=== PATIENT | female | born 1960 | race Caucasian/White ===

== ENCOUNTER 2021-07-03 15:53 | Inpatient (IN) | payer MEDICARE ==
[~2021-07-03] VITALS: Ht 165.1 cm; Wt 148.9 kg
[2021-07-03 16:43] LABS: BASOPHIL 0.7 % (0-2); EOSINOPHIL 3.5 % (0-5); HCT 46.8 % (37.0-47.0); HGB 15.1 g/dl (12.5-16.0); LYMPHOCYTE 15.2 % (15-48); MCH 30.4 pg (25.0-31.0); MCHC 32.3 g/dL (32.0-36.0); MCV 94.4 fL (78.0-100.0); MONOCYTE 12.9 % (0-12); MPV 11.5 fL (6.0-9.5); NEUTROPHIL 66.9 % (41-80); NRBC 0; PLT 173 K/uL (150-400); RBC 4.96 M/uL (4.20-5.40); RDW 13.1 % (11.5-14.0); WBC 11.6 K/uL (4.0-10.5)
[2021-07-03 16:48] LABS: INR 1.08 (0.9-1.2); PROTHROMBIN TIME 13.4 SECONDS (11.8-13.4); PTT 25.2 SECONDS (24.4-34.7)
[2021-07-03 16:54] LABS: BUN/CREAT RATIO (CALC) 16.7 RATIO; CREATININE 0.9 mg/dL (0.51-0.95)
[2021-07-04 07:09] LABS: BASOPHIL 0.8 % (0-2); EOSINOPHIL 4.4 % (0-5); HCT 44.3 % (37.0-47.0); HGB 14.4 g/dl (12.5-16.0); LYMPHOCYTE 24.2 % (15-48); MCH 30.6 pg (25.0-31.0); MCHC 32.5 g/dL (32.0-36.0); MCV 94.3 fL (78.0-100.0); MONOCYTE 13.5 % (0-12); MPV 11.5 fL (6.0-9.5); NEUTROPHIL 56.2 % (41-80); NRBC 0; PLT 173 K/uL (150-400); RDW 12.9 % (11.5-14.0); WBC 10.3 K/uL (4.0-10.5)
[2021-07-04 07:31] LABS: BUN/CREAT RATIO (CALC) 19.3 RATIO; CREATININE 0.83 mg/dL (0.51-0.95); POTASSIUM 3.9 mmol/L (3.5-5.1)
[2021-07-04] MEDS ORDERED: AMLODIPINE BESYL5 MG PO (18:39)
[2021-07-04] MEDS ORDERED: ATORVASTATIN CA20 MG PO (18:39)
[2021-07-04] MEDS ORDERED: CARTIA XT300 MG PO (18:40)
[2021-07-04] MEDS ORDERED: CLOPIDOGREL75 MG PO (18:40)
[2021-07-04] MEDS ORDERED: ISOSORBIDE MONO30 MG PO (18:41)
[2021-07-04] MEDS ORDERED: SYNTHROID200 MCG PO (18:42)
[2021-07-04] MEDS ORDERED: LISINOPRIL20 MG PO (18:42)
[2021-07-04] MEDS ORDERED: PANTOPRAZOLE SO40 MG PO (18:42)
[2021-07-04] MEDS ORDERED: TORSEMIDE5 MG PO (18:43)
[2021-07-04] MEDS ORDERED: PROTONIX 40MG T40 MG PO (18:44)
[2021-07-04] MEDS ORDERED: LOVAZA1 GM PO (18:45)
[2021-07-04] MEDS ORDERED: NIACIN500 MG PO (18:45)
[2021-07-04] MEDS ORDERED: VITAMIN E400 UNI1 PO (18:46)
[2021-07-04] MEDS ORDERED: VITAMIN D3250 MCG PO (18:46)
[2021-07-04] MEDS ORDERED: FOLIC ACID1 MG PO (18:47)
[2021-07-04] MEDS ORDERED: B COMPLEX1 EACH PO (18:47)
[2021-07-05 06:52] LABS: BASOPHIL 0.8 % (0-2); EOSINOPHIL 5.4 % (0-5); HGB 14.2 g/dl (12.5-16.0); LYMPHOCYTE 21.6 % (15-48); MCH 29.8 pg (25.0-31.0); MCHC 31.6 g/dL (32.0-36.0); MCV 94.5 fL (78.0-100.0); MONOCYTE 13.1 % (0-12); MPV 11.5 fL (6.0-9.5); NEUTROPHIL 58.3 % (41-80); NRBC 0; PLT 193 K/uL (150-400); RBC 4.76 M/uL (4.20-5.40); RDW 12.8 % (11.5-14.0); WBC 10.4 K/uL (4.0-10.5)
[2021-07-05 06:58] LABS: INR 1.1 (0.9-1.2); PROTHROMBIN TIME 13.6 SECONDS (11.8-13.4)
--- NOTE | 2021-07-05 12:18 | NUR ---
REFERRAL REGARDING CHECKING ON COST OF ELIQUIS. TC TO [facility] SPOKE WITH SHANTHI. THE TEST CLAIM HE RAN FOR PT. ELIQUIS WILL COST $47.00 A MONTH. SPOKE WITH PT. SHE ADVISED THAT SHE CAN AFFORD THE COST. ADVISED DR. SILVA.
[2021-07-06] MEDS ORDERED: LOVENOX150 MG/1 M SC (12:57)
[2021-07-06] MEDS ORDERED: ELIQUIS5 MG PO (12:57)
== END 2021-07-06 15:17 | disposition home or self-care (01) | DRG 299 ==
LOC: FER 15:53 → FMS 18:23 → FOFB 18:23 → FMS 07-04 18:21
PROVIDERS: Emergency Medicine; Internal Medicine; Nurse Practitioner; ADMIT Internal Medicine
DX: I82.402 Acute embolism and thrombosis of unspecified deep veins of left lower extremity (principal); I26.99 Other pulmonary embolism without acute cor pulmonale; C92.11 Chronic myeloid leukemia, BCR/ABL-positive, in remission; Z68.43 Body mass index [BMI] 50.0-59.9, adult; Z20.822 Contact with and (suspected) exposure to COVID-19; I10 Essential (primary) hypertension; E03.9 Hypothyroidism, unspecified; K21.9 Gastro-esophageal reflux disease without esophagitis; E66.01 Morbid (severe) obesity due to excess calories; E78.00 Pure hypercholesterolemia, unspecified; J44.9 Chronic obstructive pulmonary disease, unspecified; Z79.01 Long term (current) use of anticoagulants; Z88.8 Allergy status to other drugs, medicaments and biological substances; Z91.038 Other insect allergy status; Z91.040 Latex allergy status; Z99.81 Dependence on supplemental oxygen; I25.2 Old myocardial infarction; Z90.49 Acquired absence of other specified parts of digestive tract; Z90.710 Acquired absence of both cervix and uterus; Z98.51 Tubal ligation status; Z87.891 Personal history of nicotine dependence; Z98.890 Other specified postprocedural states
CPT/HCPCS: 36415; 71275; 80048; 85025; 85610; 85730; 93005; 93971; J1650; J2405; Q9967; U0002